=== PATIENT | male | born 1950 | race Caucasian/White ===

== ENCOUNTER 2024-10-30 16:30 | Inpatient (IN) | payer MEDICARE, BC ==
[2024-10-30] VITALS (9 sets, daily range): BP systolic 71–112; BP diastolic 50–92; TEMP 98–98.2; O2SAT 95–97
[~2024-10-30] VITALS: Ht 162.6 cm; Wt 61.4 kg
[2024-10-30 16:54] LABS: BASOPHILS % (AUTO) 0.3 % (0.0-2.0); LYMPHOCYTES # (AUTO) 1.8 K/uL (0.8-4.8); LYMPHOCYTES % (AUTO) 15.6 % (20.0-44.0); MEAN CORPUSCULAR HEMOGLOBIN 33 PG (26.0-33.0); MEAN CORPUSCULAR HGB CONC 34 g/dl (31.0-36.0); MEAN CORPUSCULAR VOLUME 98 fL (80-96); MONOCYTES # (AUTO) 0.8 K/uL (0.1-1.30); MONOCYTES % (AUTO) 7.1 % (2.0-12.0); NEUTROPHILS # (AUTO) 9.1 K/uL (1.8-8.9); PLATELET COUNT (AUTO) 163 K/uL (150-450); RED CELL DISTRIBUTION WIDTH 12.7 % (11.5-15.0); WHITE BLOOD COUNT (AUTO) 11.8 K/uL (4.3-11.0)
[2024-10-30] MEDS: PANTOPRAZOLE 80 MG in IV NS 0.9% 500 ML IV ONE (17:00)
[2024-10-30] MEDS: IV NS 0.9% 500 ML BAG IV ONE (17:00)
[2024-10-30 17:01] LABS: RED BLOOD CELL COUNT(AUTO) 1.71 MIL/uL (4.5-6.0)
[2024-10-30 17:02] LABS: HEMOGLOBIN 5.7 g/dL (13.5-17.5)
[2024-10-30 17:03] LABS: HEMATOCRIT 17 % (39-51)
[2024-10-30 17:07] LABS: ALANINE AMINOTRANSFERASE 33 U/L (12-78); ALBUMIN 2.5 g/dL (3.4-5.0); ALKALINE PHOSPHATASE 60 U/L (46-116); ASPARTATE AMINOTRANSFERASE 31 U/L (15-37); BILIRUBIN,DIRECT 0.2 mg/dL (0.0-0.2); BILIRUBIN,TOTAL 1.1 mg/dL (0.2-1.0); CALCIUM, SERUM 7.6 mg/dL (8.5-10.1); CARBON DIOXIDE 23 mmol/L (21-32); CHLORIDE 99 mmol/L (98-107); CREATININE 1.4 mg/dL (0.6-1.3); GLUCOSE 161 mg/dL (74-106); POTASSIUM 3.4 mmol/L (3.5-5.1); SODIUM SERUM 135 mmol/L (136-145); TOTAL PROTEIN, SERUM 4.7 g/dL (6.4-8.2); UREA NITROGEN, BLOOD 53 mg/dL (7-18)
[2024-10-30 17:19] LABS: INR 1.2 (0.91-1.10); PARTIAL THROMBOPLASTIN TIME 20.6 SEC (24.3-34.3); PROTHROMBIN TIME 12.6 SECS (9.2-11.1)
[2024-10-30] MEDS: PANTOPRAZOLE 80 MG in IV NS 0.9% 100 ML IV ONE (17:23)
[2024-10-30] MEDS ORDERED: ONDANSETRON HCL/PF 4 MG/2 ML VIAL IVP PRN (18:00)
[2024-10-30] MEDS ORDERED: EZET10TA32 PO (18:48)
[2024-10-30] MEDS ORDERED: PYRI100T18 PO (18:48)
[2024-10-30] MEDS ORDERED: DONE5TAB34 PO (18:48)
[2024-10-30] MEDS ORDERED: ATOR80TA PO (18:48)
[2024-10-30] MEDS ORDERED: MULT-182 PO (18:48)
[2024-10-30] MEDS ORDERED: ASPI-1169 PO (18:48)
[2024-10-30] MEDS ORDERED: PANT20TA17 PO (18:48)
[2024-10-30] MEDS ORDERED: CYAN500T9 PO (18:48)
[2024-10-30] MEDS ORDERED: PANTOPRAZOLE 80 MG in IV NS 0.9% 500 ML IV PRN (19:00)
[2024-10-30 19:39] LABS: BASOPHILS % (MANUAL) 0 % (0.0-2.0); EOSINOPHILS % (MANUAL) 0 % (0-4); LYMPHOCYTES % (MANUAL) 13 % (16-48); MONOCYTES % (MANUAL) 6 % (0-11.0); NEUTROPHILS % (MANUAL) 81 (42-76); PLATELET ESTIMATE ADEQUATE
[2024-10-30] MEDS: IV NS 0.9% 1,000 ML IV PRN (20:45)
[2024-10-30] MEDS: PANTOPRAZOLE 80 MG in IV NS 0.9% 500 ML IV SCH (20:49)
[2024-10-30] MEDS ORDERED: PANTOPRAZOLE 40 MG VIAL IV ONE (21:00)
[2024-10-30] MEDS: OCTREOTIDE 50 MCG in IV NS 0.9% 50 ML IV ONE (21:08)
[2024-10-30 21:19] LABS: BASOPHILS % (AUTO) 0.1 % (0.0-2.0); LYMPHOCYTES # (AUTO) 1.6 K/uL (0.8-4.8); MONOCYTES # (AUTO) 0.7 K/uL (0.1-1.30); PLATELET COUNT (AUTO) 129 K/uL (150-450); WHITE BLOOD COUNT (AUTO) 10.9 K/uL (4.3-11.0)
[2024-10-30] MEDS: OCTREOTIDE 1,250 MCG in IV NS 0.9% 247.5 ML IV PRN (21:21)
[2024-10-30 21:23] LABS: LYMPHOCYTES % (AUTO) 14.6 % (20.0-44.0); MEAN CORPUSCULAR HEMOGLOBIN 34 PG (26.0-33.0); MEAN CORPUSCULAR HGB CONC 35 g/dl (31.0-36.0); MEAN CORPUSCULAR VOLUME 95 fL (80-96); MONOCYTES % (AUTO) 6.7 % (2.0-12.0); NEUTROPHILS # (AUTO) 8.6 K/uL (1.8-8.9); NEUTROPHILS % (AUTO) 78.6 % (43.0-81.0)
[2024-10-30 22:17] LABS: RED BLOOD CELL COUNT(AUTO) 1.91 MIL/uL (4.5-6.0)
[2024-10-30 22:19] LABS: HEMATOCRIT 18 % (39-51); HEMOGLOBIN 6.4 g/dL (13.5-17.5)
[2024-10-30 22:58] LABS: BASOPHILS % (MANUAL) 0 % (0.0-2.0); EOSINOPHILS % (MANUAL) 0 % (0-4); LYMPHOCYTES % (MANUAL) 16 % (16-48); MONOCYTES % (MANUAL) 6 % (0-11.0); NEUTROPHILS % (MANUAL) 78 (42-76); PLATELET ESTIMATE DECREASED
[2024-10-31] VITALS (29 sets, daily range): BP systolic 94–115; BP diastolic 41–82; TEMP 97.6–98.2; O2SAT 90–97
[2024-10-31 04:19] LABS: BASOPHILS % (AUTO) 0.2 % (0.0-2.0); EOSINOPHILS % (AUTO) 0.1 % (0.0-6.0); HEMATOCRIT 22 % (39-51); HEMOGLOBIN 7.6 g/dL (13.5-17.5); LYMPHOCYTES % (AUTO) 18.6 % (20.0-44.0); MEAN CORPUSCULAR HEMOGLOBIN 31 PG (26.0-33.0); MEAN CORPUSCULAR HGB CONC 34 g/dl (31.0-36.0); MEAN CORPUSCULAR VOLUME 92 fL (80-96); MONOCYTES % (AUTO) 9.6 % (2.0-12.0); NEUTROPHILS # (AUTO) 7.5 K/uL (1.8-8.9); NEUTROPHILS % (AUTO) 71.5 % (43.0-81.0); PLATELET COUNT (AUTO) 121 K/uL (150-450); RED BLOOD CELL COUNT(AUTO) 2.41 MIL/uL (4.5-6.0); WHITE BLOOD COUNT (AUTO) 10.5 K/uL (4.3-11.0)
[2024-10-31 04:31] LABS: CALCIUM, SERUM 6.6 mg/dL (8.5-10.1); CREATININE 1.3 mg/dL (0.6-1.3); MAGNESIUM 1.7 mg/dL (1.8-2.4); PHOSPHORUS 3.9 mg/dL (2.5-4.9); POTASSIUM 3.2 mmol/L (3.5-5.1)
[2024-10-31] MEDS: PANTOPRAZOLE 40 MG VIAL ONE (08:00)
[2024-10-31] MEDS: Magnesium 1GM/D5W 100ML PREMIX 100 ML IV SCH (10:23)
[2024-10-31] MEDS ORDERED: ANESTHESIA TRAY IN PYXIS 1 EA TRAY MC ONE (11:58)
[2024-10-31] MEDS: POTASSIUM CL. PREMIX PERIPHER. 50 ML IV SCH (12:49)
[2024-10-31 13:19] LABS: HEMOGLOBIN 6.2 g/dL (13.5-17.5)
[2024-10-31 18:45] LABS: HEMOGLOBIN 7.6 g/dL (13.5-17.5)
[2024-11-01] VITALS (23 sets, daily range): BP systolic 94–112; BP diastolic 46–60; TEMP 97.3–98.2; O2SAT 90–97
[2024-11-01 03:43] LABS: BASOPHILS % (AUTO) 0.2 % (0.0-2.0); EOSINOPHILS # (AUTO) 0.1 K/uL (0.0-0.7); EOSINOPHILS % (AUTO) 1.9 % (0.0-6.0); HEMATOCRIT 25 % (39-51); HEMOGLOBIN 8.4 g/dL (13.5-17.5); LYMPHOCYTES # (AUTO) 1.9 K/uL (0.8-4.8); LYMPHOCYTES % (AUTO) 25.4 % (20.0-44.0); MEAN CORPUSCULAR HEMOGLOBIN 32 PG (26.0-33.0); MEAN CORPUSCULAR HGB CONC 34 g/dl (31.0-36.0); MEAN CORPUSCULAR VOLUME 93 fL (80-96); MONOCYTES # (AUTO) 0.7 K/uL (0.1-1.30); MONOCYTES % (AUTO) 9.5 % (2.0-12.0); NEUTROPHILS # (AUTO) 4.7 K/uL (1.8-8.9); PLATELET COUNT (AUTO) 113 K/uL (150-450); RED BLOOD CELL COUNT(AUTO) 2.64 MIL/uL (4.5-6.0); RED CELL DISTRIBUTION WIDTH 14.9 % (11.5-15.0); WHITE BLOOD COUNT (AUTO) 7.5 K/uL (4.3-11.0)
[2024-11-01 04:18] LABS: ALBUMIN 2.4 g/dL (3.4-5.0); BILIRUBIN,TOTAL 0.6 mg/dL (0.2-1.0); CALCIUM, SERUM 7.1 mg/dL (8.5-10.1); CREATININE 0.9 mg/dL (0.6-1.3); MAGNESIUM 2.2 mg/dL (1.8-2.4); POTASSIUM 4.3 mmol/L (3.5-5.1); TOTAL PROTEIN, SERUM 4.4 g/dL (6.4-8.2)
[2024-11-01] MEDS: ACETAMINOPHEN 650 MG/20.3 ML UDC PO PRN (12:13)
[2024-11-01 13:11] LABS: HEMOGLOBIN 7.8 g/dL (13.5-17.5)
[2024-11-01 21:26] LABS: APPEARANCE,URINE SLIGHTLY CLOUDY (CLEAR); BILIRUBIN,URINE NEGATIVE (NEGATIVE); BLOOD, URINE NEGATIVE Ery/uL (NEGATIVE); COLOR,URINE YELLOW (YELLOW); KETONES,URINE NEGATIVE (NEGATIVE); LEUKOCYTE ESTERASE ,URINE NEGATIVE (NEGATIVE); NITRITE, URINE NEGATIVE (NEGATIVE); PROTEIN,URINE NEGATIVE (NEGATIVE); UGLUCOSE NEGATIVE (NEGATIVE); UROBILINOGEN,URINE 0.2 EU/dL (0.2)
[2024-11-01 21:33] LABS: URINE TOTAL PROTEIN 11.7 mg/dL (0-11.9)
[2024-11-01 22:03] LABS: RBC,URINE 0-2 /HPF (0-2)
[2024-11-01 22:04] LABS: ADD URINE CULTURE NO; BACTERIA,URINE Rare /HPF (None Seen); SQUAMOUS EPITHELIAL CELL,UR Rare /HPF (None Seen); URIC ACID CRYSTALS,URINE Moderate /HPF (None Seen); WBC,URINE NONE SEEN /HPF (0-3)
[2024-11-01 22:22] LABS: EOSINOPHIL,URINE None Seen
[2024-11-02 07:12] LABS: PTH, INTACT 81 pg/mL (15-65)
[2024-11-06 13:08] LABS: *SPE A/G RATIO 1.4 (0.7-1.7); *SPE ALBUMIN 2.2 g/dL (2.9-4.4); *SPE ALPHA-1-GLOBULIN 0.2 g/dL (0.0-0.4); *SPE ALPHA-2-GLOBULIN 0.5 g/dL (0.4-1.0); *SPE BETA GLOBULIN 0.5 g/dL (0.7-1.3); *SPE GLOBULIN, TOTAL 1.6 g/dL (2.2-3.9); *SPE M-SPIKE Not Observed g/dL (Not Observed); *SPE PROTEIN TOTAL 3.8 g/dL (6.0-8.5); *SPEGAMMA GLOBULIN 0.4 g/dL (0.4-1.8)
== END 2024-11-01 18:41 | disposition short-term general hospital (02) | DRG 378 ==
LOC: ER 16:35 → ICU 18:33
PROC: 30233N1 Transfusion of Nonautologous Red Blood Cells into Peripheral Vein, Percutaneous Approach (ICD-10-PCS; 2024-10-30)
PROC: 0DB68ZX Excision of Stomach, Via Natural or Artificial Opening Endoscopic, Diagnostic (ICD-10-PCS; principal; 2024-10-31)
PROC: 0D998ZX Drainage of Duodenum, Via Natural or Artificial Opening Endoscopic, Diagnostic (ICD-10-PCS; 2024-10-31)
DX: K26.4 Chronic or unspecified duodenal ulcer with hemorrhage (principal); D62 Acute posthemorrhagic anemia; E44.0 Moderate protein-calorie malnutrition; E87.1 Hypo-osmolality and hyponatremia; N17.9 Acute kidney failure, unspecified; K29.70 Gastritis, unspecified, without bleeding; K21.00 Gastro-esophageal reflux disease with esophagitis, without bleeding; E83.42 Hypomagnesemia; E88.09 Other disorders of plasma-protein metabolism, not elsewhere classified; E87.6 Hypokalemia; D72.829 Elevated white blood cell count, unspecified; F10.10 Alcohol abuse, uncomplicated; F03.90 Unspecified dementia, unspecified severity, without behavioral disturbance, psychotic disturbance, mood disturbance, and anxiety; F17.210 Nicotine dependence, cigarettes, uncomplicated; E78.5 Hyperlipidemia, unspecified; E86.9 Volume depletion, unspecified; K57.30 Diverticulosis of large intestine without perforation or abscess without bleeding; I10 Essential (primary) hypertension; N20.0 Calculus of kidney; I95.9 Hypotension, unspecified
CPT/HCPCS: 36415; 43235; 71045-TC; 76700-TC; 80048-TC; 80053-TC; 80076-TC; 81001; 82550-TC; 82553; 82570-TC; 83735-TC; 83970; 84100-TC; 84155; 84165; 84300-TC; 85025-TC; 85027-TC; 85730-TC; 86850-TC; 87081-TC; 88305-TC; 88312-TC; 88313-TC; A4223; A6403; G0378; J2354; J2470; J2704; J3475; J3480; J7030; J7040; J7050; P9016